=== PATIENT | female | born 1985 ===

== ENCOUNTER 2017-09-20 09:51 | Day surgery (SDC) | payer OTHER ==
[2017-09-20 10:17] VITALS: BMI 22.5
[2017-09-20 10:27] VITALS: O2SAT 100
[2017-09-20] MEDS ORDERED: Propofol 10 mg/ml Inj (20 ML) ONE (11:07)
[2017-09-20] MEDS ORDERED: Lactated Ringer's 1,000 ML IV ONE (11:29)
[2017-09-20] MEDS ORDERED: Lactated Ringer's 500 ML IV SCH (11:30)
[2017-09-20 13:31] VITALS: TEMP 97
[2017-09-20 13:39] VITALS: BP 119/78; PULSE 71; RESP 18
== END 2017-09-20 13:05 | disposition home or self-care (01) ==
LOC: C.ENDO 09:51
PROVIDERS: ATTEND Internal Medicine Gastroenterology
DX: K29.50 Unspecified chronic gastritis without bleeding (principal); K44.9 Diaphragmatic hernia without obstruction or gangrene; K21.0 Gastro-esophageal reflux disease with esophagitis; R10.13 Epigastric pain
CPT/HCPCS: 43239; 84703; 88305; J2704; J3010; J7120